=== PATIENT | female | born 1965 | race Caucasian/White ===

== ENCOUNTER 2017-08-14 19:52 | Emergency (ER) | payer BC ==
[~2017-08-14] VITALS: Ht 147.3 cm; Wt 70.0 kg
[~2017-08-14 19:52] MED LIST: BACT800T5 PO; CHLO25TA24 PO; CYMB60CA PO; DICY1TAB26 PO; GABA300C3 PO; IBUP800 PO; LEVO75TA3 PO; TRAM50TA PO; VICT18IN SQ
[2017-08-14 19:57] VITALS: BP 132/78; PULSE 83; RESP 16; TEMP 98.2; O2SAT 96
--- NOTE | 2017-08-14 20:15 | PD ---
HPI Chief Complaint: Edema Time Seen by Provider: 20:02 Travel History International Travel<30 days: No Contact w/Intl Traveler<30days: No Traveled to known affect area: No History of Present Illness HPI 51-year-old female that presents to the ED for evaluation of right ankle pain with no injury. Per patient about 2 days ago she scraped her great toe. Per patient she has had no other injuries other than working today. She's been working on her feet and she noticed that to hours ago she developed a sharp pain in her medial aspect of her right ankle. Per patient is sharp and gets worse with weightbearing. No numbness, tingling, weakness. No other medical issues. No prior injuries. Pain per patient is 7 out of 10. Allergy to lisinopril. PFSH Past Medical History Arthritis: Yes Autoimmune Disease: Yes Depression: Yes Fibromyalgia: Yes Hypertension: Yes Immunizations Current: No Migraines: Yes Triglycerides - High: Yes Menopausal: Yes Past Surgical History Abdominal Surgery: Yes (HERNIA REPAIR) Appendectomy: Yes Other Surgery: Yes (TUMOR REMOVAL X4) Social History Alcohol Use: No Tobacco Use: No Substance Use: No Allergies-Medications (Allergen,Severity, Reaction): Coded Allergies: lisinopril (Unverified Adverse Reaction, Severe, Cough, 08/14/17) Reported Meds & Prescriptions Reported Meds & Active Scripts Active Bentyl (Dicyclomine HCl) 20 Mg Tab 20 Mg PO Q8 Bactrim DS (Sulfamethoxazole-Trimethoprim DS) 1 Tab Tab 1 Tab PO BID 7 Days Reported Levothyroxine 75 mcg (Levothyroxine Sodium) 75 Mcg Tab 75 Mcg PO DAILY Victoza 18 mg/3 ml Multi-Dose Pen (Liraglutide 18 mg/3 ml Multi-Dose Pen) 18 Mg/3 Ml Inj 0.6 Mg SQ DAILY Hygroton (Chlorthalidone) 25 Mg Tab 25 Mg PO DAILY Cymbalta (Duloxetine Hcl) 60 Mg Cap 60 Mg PO DAILY Motrin 800 Mg Tab (Ibuprofen) 800 Mg Tab 800 Mg PO Q8H PRN Gabapentin 300 Mg Cap 300 Mg PO TID Tramadol Hcl (Tramadol HCl) 50 Mg Tab 50 Mg PO TID PRN Review of Systems Except as stated in HPI: all other systems reviewed are Neg Physical Exam Narrative GENERAL: SKIN: Warm and dry. HEAD: Atraumatic. Normocephalic. EYES: Pupils equal and round. No scleral icterus. No injection or drainage. ENT: No nasal bleeding or discharge. Mucous membranes pink and moist. NECK: Trachea midline. No JVD. CARDIOVASCULAR: Regular rate and rhythm. RESPIRATORY: No accessory muscle use. Clear to auscultation. Breath sounds equal bilaterally. GASTROINTESTINAL: Abdomen soft, non-tender, nondistended. Hepatic and splenic margins not palpable. MUSCULOSKELETAL: Extremities without clubbing, cyanosis, or edema. No obvious deformities. Full range of motion of the upper and lower extremities bilaterally. 2+ pulses bilaterally. Patient has reproducible pain on the right medial malleolus. Soft tissue swelling noted. Patient does have a skin tear that appears to be healing on the plantar aspect of the right great toe. NEUROLOGICAL: Awake and alert. No obvious cranial nerve deficits. Motor grossly within normal limits. Five out of 5 muscle strength in the arms and legs. Normal speech. PSYCHIATRIC: Appropriate mood and affect; insight and judgment normal. Data Data Last Documented VS Vital Signs Date Time Temp Pulse Resp B/P (MAP) Pulse Ox O2 Delivery O2 Flow Rate FiO2 08/14/17 19:57 98.2 83 16 132/78 (96) 96 Orders Orders Ankle, Complete ([id number]) (08/14/17 ) Foot, Complete ([id number]) (08/14/17 ) [facility] Medical Decision Making Medical Screen Exam Complete: Yes Emergency Medical Condition: Yes Medical Record Reviewed: Yes Differential Diagnosis Sprain versus fracture versus tendinitis Narrative Course 51-year-old female that presents to the ED for evaluation of right ankle pain. Patient was properly examined and was found to have signs and symptoms consistent appears to be likely sprain. X-rays were ordered. Case signed out to my attending pending xrays and disposition. Yoshi Hernandez Aug 14, 2017 20:15
[2017-08-14 20:20] VITALS: BP 132/78; PULSE 83; RESP 16; TEMP 98.2; O2SAT 96
--- NOTE | 2017-08-14 20:30 | PD ---
Data Data Last Documented VS Vital Signs Date Time Temp Pulse Resp B/P (MAP) Pulse Ox O2 Delivery O2 Flow Rate FiO2 08/14/17 21:34 08/14/17 20:24 Room Air 08/14/17 20:20 98.2 83 16 96 Orders Orders Ankle, Complete ([id number]) (08/14/17 ) Foot, Complete ([id number]) (08/14/17 ) Ed Discharge Order (08/14/17 21:27) MDM Supervised Visit with FAITH: Yes Narrative Course Patient CARE assume from Yoshi Hernandez PA-C at 2100. The patient is actually telling me that she rolled her ankle as well. She states she is having some medial malleolus pain. I reviewed her x-rays and see absolutely no bony abnormality whatsoever. 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 She has no swelling no Homans sign and no risk factors for DVT. She does have a neoprene splint that she bought, I discussed with her symptomatic management need for weightbearing to trigger appropriate healing. Rest ice compression elevation and return to ED criteria. Discussed need follow-up with primary care physician in 3-4 weeks if no better to consider an MRI but her ankle is stable at this time. She is stable for discharge. Diagnosis Primary Impression: Ankle sprain Patient Instructions: General Instructions, RICE Therapy (GEN) Disposition: 01 DISCHARGE HOME Condition: Stable Sumit Ch MD Aug 14, 2017 20:30
--- NOTE | 2017-08-14 20:57 | RADRPT ---
EXAM DATE/TIME: 08/14/2017 20:28 [facility] COMPARISON: No previous studies available for comparison. INDICATIONS : Right foot pain and swelling. MEDICAL HISTORY : None. SURGICAL HISTORY : None. ENCOUNTER: Initial ACUITY: 1 day PAIN SCORE: 6/10 LOCATION: Right lateral FINDINGS: Three view examination of the right foot demonstrates no soft tissue swelling, dislocation, or fractu re. The tarsal bones appear intact. The interphalangeal and metatarsophalangeal joints are intact. The calcaneus is intact. Bony mineralization is normal. CONCLUSION: 1. No acute findings. Tanner Medellin MD on August 14, 2017 at 20:55 Board Certified Radiologist. This report was verified electronically.
--- NOTE | 2017-08-14 20:57 | RADRPT ---
EXAM DATE/TIME: 08/14/2017 20:28 [facility] COMPARISON: No previous studies available for comparison. INDICATIONS : Right ankle pain and swelling medial side. MEDICAL HISTORY : None. SURGICAL HISTORY : None. ENCOUNTER: Initial ACUITY: 1 day PAIN SCORE: 7/10 LOCATION: Right lateral FINDINGS: Three view exam was performed of the right ankle. The bony structures are in normal alignment. No e vidence of fracture, dislocation, or soft tissue swelling. The ankle mortise is intact. No radiopaq ue foreign bodies are seen. Bony mineralization is normal. CONCLUSION: 1. No acute bony abnormalities. Tanner Medellin MD on August 14, 2017 at 20:53 Board Certified Radiologist. This report was verified electronically.
== END 2017-08-14 21:41 | disposition home or self-care (01) ==
LOC: PHEFT 19:52
DX: S93.401A Sprain of unspecified ligament of right ankle, initial encounter (principal); X50.9XXA Other and unspecified overexertion or strenuous movements or postures, initial encounter; M19.90 Unspecified osteoarthritis, unspecified site; M79.7 Fibromyalgia; I10 Essential (primary) hypertension; F32.9 Major depressive disorder, single episode, unspecified
CPT/HCPCS: 73610; 73630; 99283

== ENCOUNTER 2017-10-07 17:53 | Emergency (ER) | payer OTHER, BC ==
[~2017-10-07] VITALS: Ht 147.3 cm; Wt 69.0 kg
[2017-10-07 18:33] VITALS: BP 118/75; PULSE 82; RESP 20; TEMP 97.9; O2SAT 100
[2017-10-07] MEDS ORDERED: IMIT25TA PO (19:29)
[2017-10-07] MEDS ORDERED: BUPR150CR PO (19:29)
[2017-10-07] MEDS ORDERED: TRAM50TA PO (19:29)
[2017-10-07] MEDS ORDERED: ZOFR4TAB PO (19:29)
[2017-10-07] MEDS ORDERED: IBUP1TAB7 PO (19:29)
[2017-10-07] MEDS ORDERED: GABA300C5 PO (19:29)
[2017-10-07] MEDS ORDERED: traMADol HCL 50 MG TAB PO ONE (19:30)
--- NOTE | 2017-10-07 19:32 | PD ---
HPI Chief Complaint: Head Injury Time Seen by Provider: 19:21 Travel History International Travel<30 days: No Contact w/Intl Traveler<30days: No Traveled to known affect area: No History of Present Illness HPI 51-year-old female presents to the emergency department for evaluation after head injury that occurred on 10/05/2017. Patient states she was loading groceries into her car when the trunk fell and hit her in the head. No loss of consciousness. She went to urgent care, but they did not perform CT of the brain at that time. She went back today and they referred her to the emergency department for CT scan of the brain. Patient also complains of right shoulder pain. She states the urgent care has already x-rayed her arm in no acute abnormality was found. Patient is not on anticoagulants. She reports nausea, but no vomiting. She reports headache, 4/10, aching and throbbing. No radiation. She denies any neck pain or back pain. No chest pain or abdominal pain. Moderate severity PFSH Past Medical History Arthritis: Yes (OESTEO) Autoimmune Disease: Yes (NEUROFIBROMOTOSIS) Depression: Yes Fibromyalgia: Yes Hypertension: Yes Immunizations Current: No Migraines: Yes Triglycerides - High: Yes Tetanus Vaccination: > 5 Years Influenza Vaccination: Yes ?: Not Menopausal: Yes Past Surgical History Abdominal Surgery: Yes (HERNIA REPAIR) Appendectomy: Yes Other Surgery: Yes (TUMOR REMOVAL X4) Social History Alcohol Use: No Tobacco Use: No Substance Use: No Allergies-Medications (Allergen,Severity, Reaction): Coded Allergies: lisinopril (Unverified Adverse Reaction, Severe, Cough, 10/07/17) Reported Meds & Prescriptions Reported Meds & Active Scripts Active Reported Ibuprofen 800 Mg Tab 800 Mg PO Q6HR PRN Zofran (Ondansetron HCl) 4 Mg Tab 4 Mg PO Q6HR PRN Wellbutrin SR 12 HR (Bupropion HCl) 150 Mg Tab Unknown Dose PO Q12HR Tramadol (Tramadol HCl) 50 Mg Tab 50 Mg PO Q8H PRN Imitrex (Sumatriptan Succinate) 25 Mg Tab Unknown Dose PO ONCE PRN If a satisfactory response has not been obtained at 2 hours, a second dose may be administered Gabapentin 300 Mg Cap 300 Mg PO TID Review of Systems Except as stated in HPI: all other systems reviewed are Neg Physical Exam Narrative GENERAL: Well-nourished, well-developed female patient, afebrile. SKIN: Focused skin assessment warm/dry. Patient has ecchymosis to the right forehead, right humerus, right shoulder. HEAD: Normocephalic. ENT: Mucosa pink and moist. No erythema or exudates. No uvular edema. No uvular , palatal, or tonsillar deviation. Airway patent. Nasal turbinates appear normal without nasal blood, purulent drainage or septal hematoma. Bilateral tympanic membranes clear without erythema or perforation. EYES: No scleral icterus. No injection or drainage. PERRLA. EOM intact NECK: Supple, trachea midline. No JVD or lymphadenopathy. CARDIOVASCULAR: Regular rate and rhythm without murmurs, gallops, or rubs. RESPIRATORY: Breath sounds equal bilaterally. No accessory muscle use. Lung sounds are clear to auscultation. GASTROINTESTINAL: Abdomen soft, non-tender, nondistended. MUSCULOSKELETAL: No cyanosis, or edema. Patient has tenderness over right shoulder. She has full range of motion of the right shoulder and right arm BACK: Nontender without obvious deformity. No CVA tenderness. Data Data Last Documented VS Vital Signs Date Time Temp Pulse Resp B/P (MAP) Pulse Ox O2 Delivery O2 Flow Rate FiO2 10/07/17 19:24 Room Air 10/07/17 18:33 97.9 82 20 118/75 (89) [address] Brain W/O Iv Contrast(Rout) (10/07/17 ) Tramadol (Ultram) (10/07/17 19:30) MDM Medical Decision Making Medical Screen Exam Complete: Yes Emergency Medical Condition: Yes Medical Record Reviewed: Yes Interpretation(s) Last Impressions Head CT 10/07/17 0000 Signed Impressions: Service Date/Time: Saturday, October 07, 2017 19:46 - CONCLUSION: Negative noncontrast head CT. Mansoor Falcon MD Differential Diagnosis Closed head injury versus intracranial hemorrhage versus skull fracture Narrative Course 51-year-old female presents to the emergency department for evaluation of head injury 2 days ago. She was sent by urgent care for CT of the brain. CT the brain is ordered and pending. Patient states she takes tramadol 100 mg every 6 hours as needed for pain. She last took this at 1:00 and would like another dose. Tramadol [address] of the brain is negative Patient is continue tramadol as directed as needed. She states that she is to follow with primary care urgent care tomorrow. She is return here for any acute worsening of symptoms. The patient was discharged in stable condition with instructions, including return instructions and follow up instructions. Diagnosis Primary Impression: Closed head injury Qualified Codes: S09.90XA - Unspecified injury of head, initial encounter Referrals: Primary Care Physician call for appointment Patient Instructions: General Instructions, Head Injury (ED) Additional Instructions: Continue tramadol as directed as needed for pain. Follow-up with a primary care physician. Return to the emergency department for any acute worsening of symptoms. Med/Other Pt SpecificInfo: No Change to Meds Disposition: 01 DISCHARGE HOME Condition: Stable UdaySayra Oct 07, 2017 19:32
--- NOTE | 2017-10-07 20:05 | RADRPT ---
EXAM DATE/TIME: 10/07/2017 19:46 [facility] COMPARISON: No previous studies available for comparison. INDICATIONS : Hit right side of head with trunk a few days ago. Headache. RADIATION DOSE: 52.22 CTDIvol (mGy) MEDICAL HISTORY : Hypertension. Neurofibromotosis. SURGICAL HISTORY : None. ENCOUNTER: Initial ACUITY: 2 days PAIN SCALE: 4/10 LOCATION: cranial TECHNIQUE: Multiple contiguous axial images were obtained of the head. Using automated exposure control and adj ustment of the mA and/or kV according to patient size, radiation dose was kept as low as reasonably a chievable to obtain optimal diagnostic quality images. DICOM format image data is available electro nically for review and comparison. FINDINGS: CEREBRUM: The ventricles are normal for age. No evidence of midline shift, mass lesion, hemorrhage or acute in farction. No extra-axial fluid collections are seen. POSTERIOR FOSSA: The cerebellum and brainstem are intact. The 4th ventricle is midline. The cerebellopontine angle i s unremarkable. EXTRACRANIAL: The visualized portion of the orbits is intact. SKULL: The calvaria is intact. No evidence of skull fracture. CONCLUSION: Negative noncontrast head CT. Mansoor Falcon MD on October 07, 2017 at 20:01 Board Certified Radiologist. This report was verified electronically.
== END 2017-10-07 20:55 | disposition home or self-care (01) ==
LOC: PHEFT 17:53
DX: S09.90XA Unspecified injury of head, initial encounter (principal); W20.8XXA Other cause of strike by thrown, projected or falling object, initial encounter; Y92.810 Car as the place of occurrence of the external cause; I10 Essential (primary) hypertension; M19.90 Unspecified osteoarthritis, unspecified site; M79.7 Fibromyalgia; Z79.899 Other long term (current) drug therapy
CPT/HCPCS: 70450; 99283